=== PATIENT | female | born 1960 | race Caucasian/White ===

== ENCOUNTER 2022-04-08 08:39 | Emergency (ER) | payer BC ==
[~2022-04-08] VITALS: Ht 160 cm; Wt 52.7 kg
[2022-04-08 08:45] VITALS: BP 123/75
[2022-04-08 09:05] LABS: HEMOGLOBIN 14.4 g/dl (12.0-16.0); IMMATURE GRANULOCYTES 0.3 % (0.0-5.0); MEAN CELL VOLUME 94.5 fL CALC (80.0-100.0); MEAN CORPUSCULAR HGB 30.3 pG CALC (26.0-32.0); NEUT# 5.12 thou/uL (2.00-7.15); RED BLOOD COUNT 4.76 mill/uL (4.20-5.60); RED CELL DISTRI WIDTH 12.7 % (11.5-15.5)
[2022-04-08 09:13] VITALS: BP 126/85
[2022-04-08] MEDS ORDERED: LEVOTHYROXIN50 MCG PO (09:18)
[2022-04-08] MEDS ORDERED: WELLBUTRIN XL300 MG PO (09:18)
[2022-04-08 09:33] LABS: ALKALINE PHOSPHATASE 81 u/l (38-126); ANION GAP 15 (6-22 (CALC)); BILIRUBIN, TOTAL 0.4 mg/dL (0.0-1.4); BUN 13 mg/dL (8-23); BUN/CREATININE RATIO 14 (12-20 (CALC)); CARBON DIOXIDE 26 mmol/l (22-30); CHLORIDE 104 mmol/l (95-108); CREATININE 0.9 mg/dL (0.5-1.0); GFR FOR AFR.AMER. > 60 ML/MIN (>=60 (CALC)); GFR OTHER RACES > 60 ML/MIN (>=60 (CALC)); POTASSIUM 4.4 mmol/l (3.5-5.1); SGOT/AST 24 u/l (9-36); SODIUM 141 mmol/l (137-146); TOTAL PROTEIN 8.2 g/dL (6.3-8.2)
[2022-04-08 11:39] VITALS: BP 123/75
[2022-04-08] MEDS ORDERED: PROTONIX40 M2 PO (11:43)
== END 2022-04-08 11:50 | disposition home or self-care (01) | DRG 392 ==
LOC: ED 08:39
PROVIDERS: Family Medicine
DX: R10.13 Epigastric pain (principal)